=== PATIENT | female | born 1945 | race Caucasian/White ===

== ENCOUNTER 2021-08-01 16:52 | Observation (INO) ==
[2021-08-01 17:44] LABS: Basophils # 0.1 10*3/uL (0.0-0.2); Basophils % 0.4 % (0.0-0.8); Eosinophils # 0.1 10*3/uL (0.0-0.87); Eosinophils % 0.5 % (0.00-10.9); Hematocrit 39.5 VOL% (35.7-47.0); Hemoglobin 12.5 GM/DL (12.0-16.0); Immature Granulocytes % 0.3 %; Immature Granulocytes Absolute 0.03 #; Lymphocytes # 5.2 10*3/uL (1.4-4.0); Lymphocytes % 45.6 % (21.3-54.2); Mean Corpuscular HGB Conc 31.6 GM/DL (32-36); Mean Platelet Volume 11.1 FL (9.6-12.0); Neutrophils % 49.2 % (38.7-73.9); Platelet Count 149 T/CUMM (130-400); Red Blood Count 4.54 MC/CUMM (3.8-5.5); Red Cell Distribution Width 14.1 % (9.3-17.3); White Blood Count 11.4 T/CUMM (4-12)
[2021-08-01] MEDS ORDERED: hydrALAZINE 20 MG/1 ML VIAL IV STA (17:45)
[2021-08-01 17:54] LABS: Partial Thromboplastin Time 25.4 SECS (23.9-33.8)
[2021-08-01 17:58] LABS: Albumin 3.6 G/DL (3.4-5.0); Bilirubin,Total 1.2 MG/DL (0.20-1.00); Calcium 8.7 MG/DL (8.5-10.1); Osmolality,Calculated 277.7 MOS/KG (273-304); Potassium 3.7 MMOL/L (3.5-5.1); Total Protein 7.1 G/DL (6.4-8.2)
[2021-08-01 18:11] LABS: Anisocytosis 1+; Atypical Lymphocytes Few; Band Neutrophils 5 % (0-10); Lymphocytes 41 % (20-55); Platelet Estimate Adequate; Segmented Neutrophils 50 % (50-85); Smudge Cells Few; Total Cells Counted 100
[2021-08-01] MEDS ORDERED: DEXTROSE 50% 25 GM/50 ML VIAL IV PRN (19:41)
[2021-08-01] MEDS ORDERED: ONDANSETRON 4 MG/2 ML VIAL IV PRN (19:41)
[2021-08-01] MEDS ORDERED: GLUCAGON 1 MG VIAL IM PRN (19:41)
[2021-08-01] MEDS ORDERED: MECLIZINE 25 MG TABLET PO PRN (19:41)
[2021-08-01] MEDS ORDERED: ACETAMINOPHEN 325 MG TABLET PO PRN (19:41)
[2021-08-01] MEDS ORDERED: LABETALOL 20 MG/4 ML SYRINGE IV PRN (19:41)
[2021-08-01] MEDS ORDERED: LACTATED RINGERS 1,000 ML IV SCH (20:00)
[2021-08-01] MEDS ORDERED: ENOXAPARIN 40 MG/0.4 ML SYRINGE SUBCUT SCH (20:00)
[2021-08-01 20:36] LABS: Barbiturates Screen,Urine Negative (Negative); Benzodiazepines Screen,Urine Negative (Negative); Cannabinoid Screen,Urine Negative (Negative); Opiate Screen,Urine Negative (Negative); Phencyclidine Screen,Urine Negative (Negative)
[2021-08-02 04:35] LABS: Basophils # 0.1 10*3/uL (0.0-0.2); Basophils % 0.4 % (0.0-0.8); Eosinophils # 0.1 10*3/uL (0.0-0.87); Eosinophils % 0.4 % (0.00-10.9); Hematocrit 37.4 VOL% (35.7-47.0); Hemoglobin 11.9 GM/DL (12.0-16.0); Immature Granulocytes % 0.3 %; Immature Granulocytes Absolute 0.04 #; Lymphocytes % 50.7 % (21.3-54.2); Mean Corpuscular HGB Conc 31.8 GM/DL (32-36); Mean Corpuscular Volume 87.6 FL (87-102); Mean Platelet Volume 11.2 FL (9.6-12.0); Monocytes % 5.5 % (1.7-12.7); Neutrophils % 42.7 % (38.7-73.9); Platelet Count 158 T/CUMM (130-400); Red Blood Count 4.27 MC/CUMM (3.8-5.5); Red Cell Distribution Width 14.1 % (9.3-17.3); White Blood Count 13.7 T/CUMM (4-12)
[2021-08-02 04:58] LABS: Atypical Lymphocytes Few; Hypochromasia Slight; Lymphocytes 52 % (20-55); Microcytosis Slight; Platelet Estimate Adequate; Segmented Neutrophils 45 % (50-85); Total Cells Counted 100
[2021-08-02 05:06] LABS: Calcium 8.1 MG/DL (8.5-10.1); Osmolality,Calculated 276.5 MOS/KG (273-304); Potassium 3.8 MMOL/L (3.5-5.1); Thyroid Stimulating Hormone 0.348 uIU/ml (0.358-3.74)
[2021-08-02] MEDS ORDERED: LOSARTAN 50 MG TABLET PO SCH (09:00)
[2021-08-02] MEDS ORDERED: ASPIRIN 325 MG TABLET PO SCH (09:00)
[2021-08-02] MEDS ORDERED: PANTOPRAZOLE 40 MG TABLET PO SCH (09:00)
[2021-08-02] MEDS ORDERED: DEXTROSE 50% 25 GM/50 ML VIAL IV PRN (11:40)
[2021-08-02 12:48] VITALS: BP 124/74
[2021-08-03] MEDS ORDERED: ASPIRIN EC 81 MG TABLET PO SCH (09:00)
== END 2021-08-02 14:00 | disposition home or self-care (01) ==
LOC: EDBD → EDUNIT# → N.EDINP 16:52 → N.ED 16:52 → N.EDINP 21:22 → N.4E 21:44
PROVIDERS: ADMIT Hospitalist; ATTEND Hospitalist